=== PATIENT | male | born 1985 | race Two or more races ===

== ENCOUNTER 2017-02-01 06:23 | Emergency (ER) | payer SELFPAY ==
[~2017-02-01] VITALS: Ht 172.7 cm; Wt 72.6 kg
--- NOTE | 2017-02-01 06:46 | NUR ---
Pt c/o RLE pain, resting in position of comfort for self. Awaiting further eval.
--- NOTE | 2017-02-01 06:50 | NUR ---
Dr. Suero at bedside for MSE
--- NOTE | 2017-02-01 07:04 | NUR ---
Report given to RENA Ann. I relinquish care of pt at this time
--- NOTE | 2017-02-01 08:00 | NUR ---
Patient is resting comfortably in bed with eyes closed
--- NOTE | 2017-02-01 09:00 | NUR ---
Patient is resting comfortably in bed with eyes closed
--- NOTE | 2017-02-01 10:18 | NUR ---
Patient is resting comfortably in bed with eyes closed
--- NOTE | 2017-02-01 10:21 | NUR ---
Patient awake, ambulated with a steady gait to restroom and back to room. Patient returned to room and immediately layed in bed and closed his eyes.
--- NOTE | 2017-02-01 11:36 | NUR ---
Patient is resting comfortably in bed with eyes closed
--- NOTE | 2017-02-01 12:36 | NUR ---
Patient given written and verbal discharge instructions. Patient verbalizes understanding of instructions. Patient is ambulatory with steady gait. Refuses offer of [facility] placement. Patient given list of available shelters in surrounding area.
== END 2017-02-01 12:37 | disposition home or self-care (01) ==
LOC: ER 06:47
DX: S82.401A Unspecified fracture of shaft of right fibula, initial encounter for closed fracture (principal); F17.200 Nicotine dependence, unspecified, uncomplicated; W18.31XA Fall on same level due to stepping on an object, initial encounter; Y93.01 Activity, walking, marching and hiking; Y92.9 Unspecified place or not applicable; Y99.9 Unspecified external cause status
CPT/HCPCS: 73560; 73590; 73630; 99284; A4663